=== PATIENT | male | born 1965 | race Caucasian/White ===

== ENCOUNTER → 2016-10-10 | Outpatient (CLI) | payer BC ==
--- NOTE | 2016-10-10 15:32 | REP ---
LEFT KNEE, FIVE VIEWS: HISTORY: Pain. There is no acute fracture or dislocation. The joint spaces are normal in appearance. IMPRESSION: There is no acute fracture or dislocation. Signed by Hermilo Rubi MD 10/10/2016 03:38 P
== END ==
LOC: M SMT 14:41
PROVIDERS: ATTEND Physician Assistant
DX: M25.562 Pain in left knee (principal)

== ENCOUNTER → 2016-11-28 | Outpatient (CLI) | payer BC ==
[~2016-11-28] VITALS: Ht 175.3 cm; Wt 125.2 kg
[~2016-11-28] MED LIST: BP pill PO; IBUP200C PO; LIDOCAINE 2% INJ 100 MG/5 ML SDV (FOR ANES.) As Ordered ONE; NS 1,000 ML IV SCH; PROPOFOL 200 MG/20 ML VIAL As Ordered ONE; [UNRECOGNIZED DRUG - REMARK] PO
--- NOTE | 2016-11-28 09:56 | ROOR ---
Patient Name: Aubrey Yen Procedure Date: 11/28/2016 9:36 AM Date of : 1965 Age: 51 Room: [facility] Gender: Male Note Status: Finalized Procedure: Colonoscopy Indications: Screening for colorectal malignant neoplasm Providers: Morgan Baldwin Jr, MD Referring MD: BRANDYN RANKIN [facility] [place] Requesting Provider: Medicines: Propofol per Anesthesia Complications: No immediate complications. Procedure: Pre-Anesthesia Assessment: - Prior to the procedure, a History and Physical was performed, and patient medications and allergies were reviewed. The patient is competent. The risks and benefits of the procedure and the sedation options and risks were discussed with the patient. All questions were answered and informed consent was obtained. Patient identification and proposed procedure were verified by the physician and the nurse in the pre-procedure area and in the procedure room. Mental Status Examination: alert and oriented. Airway Examination: normal oropharyngeal airway and neck mobility. Respiratory Examination: clear to auscultation. CV Examination: normal. ASA Grade Assessment: II - A patient with mild systemic disease. After reviewing the risks and benefits, the patient was deemed in satisfactory condition to undergo the procedure. The anesthesia plan was to use moderate sedation / analgesia (conscious sedation). Immediately prior to administration of medications, the patient was re-assessed for adequacy to receive sedatives. The heart rate, respiratory rate, oxygen saturations, blood pressure, adequacy of pulmonary ventilation, and response to care were monitored throughout the procedure. The physical status of the patient was re-assessed after the procedure. The Colonoscope was introduced through the anus and advanced to the cecum, identified by appendiceal orifice and ileocecal valve. The colonoscopy was performed without difficulty. The patient tolerated the procedure well. The quality of the bowel preparation was adequate and good. Findings: The perianal and digital rectal examinations were normal. Pertinent negatives include normal sphincter tone, no palpable rectal lesions and no anal lesion or abnormality was detected. The rectum, recto-sigmoid colon, descending colon, transverse colon, ascending colon, cecum, appendiceal orifice and ileocecal valve appeared normal. Multiple small-mouthed diverticula were found in the sigmoid colon. Impression: - The rectum, recto-sigmoid colon, descending colon, transverse colon, ascending colon, cecum, appendiceal orifice and ileocecal valve are normal. - Diverticulosis in the sigmoid colon. - No specimens collected. Recommendation: - Discharge patient to home (ambulatory). - Repeat colonoscopy in 10 years for screening purposes. Morgan Baldwin MD Morgan Baldwin Jr, MD 11/28/2016 9:55:54 AM This report has been signed electronically. Number of Addenda: 0 Note Initiated On: 11/28/2016 9:36 AM Estimated Blood Loss: Estimated blood loss: none.
[2016-11-28 10:10] VITALS: BP 134/84
== END | disposition home or self-care (01) ==
LOC: M OPP 08:49
PROVIDERS: ATTEND Surgery
DX: Z12.11 Encounter for screening for malignant neoplasm of colon (principal); K57.30 Diverticulosis of large intestine without perforation or abscess without bleeding; I10 Essential (primary) hypertension; R06.02 Shortness of breath; R06.83 Snoring; E66.9 Obesity, unspecified; Z88.8 Allergy status to other drugs, medicaments and biological substances; Z79.899 Other long term (current) drug therapy; Z87.891 Personal history of nicotine dependence
CPT/HCPCS: 99156; G0121

== ENCOUNTER 2017-01-28 15:46 | Outpatient (CLI) | payer BC ==
[~2017-01-28] VITALS: Ht 177.8 cm; Wt 125.0 kg
[~2017-01-28 15:46] MED LIST changes: -AMLO5TAB2 PO; -CELE1CAP9 PO; +IBUP200C PO; -IBUP200C10 PO
[2017-01-28 16:15] VITALS: BP 158/92
[2017-01-28] MEDS ORDERED: methylPREDNISolone 1,000 MG, VIAL MATE ADAPTER 1 EACH in D5W 250 ML IV ONE (16:15)
[2017-01-28 18:08] VITALS: BP 149/74
[2017-01-28] MEDS ORDERED: AMLO5TAB2 PO (18:08)
== END 2017-01-28 18:06 | disposition home or self-care (01) ==
LOC: M OPCLI4PV 15:46 → M MSPAV 15:52 → M OPCLI4PV 18:06
PROVIDERS: ATTEND Psychiatry & Neurology Neurology
DX: G35 Multiple sclerosis (principal); Z88.8 Allergy status to other drugs, medicaments and biological substances; Z79.899 Other long term (current) drug therapy
CPT/HCPCS: 96365; J2930

== ENCOUNTER → 2017-01-28 | Outpatient (REF) | payer BC ==
[~2017-01-28] MED LIST changes: +AMLO5TAB2 PO; +CELE1CAP9 PO; -IBUP200C PO; +IBUP200C10 PO; -LIDOCAINE 2% INJ 100 MG/5 ML SDV (FOR ANES.) As Ordered ONE; -NS 1,000 ML IV SCH; -PROPOFOL 200 MG/20 ML VIAL As Ordered ONE
[2017-01-28 20:25] LABS: FREE T4 1.07 NG/DL (0.76-1.46)
[2017-01-29 11:19] LABS: VITAMIN B12 LEVEL 486 PG/ML
[2017-02-04 14:11] LABS: Lyme Disease IgG/IgM Antibodie <0.91 ISR (0.00-0.90); Lyme Disease IgM Ab Quantitati <0.80 index (0.00-0.79); SJOGREN'S ANTI SS-A <0.2 AI (0.0-0.9); SJOGREN'S ANTI SS-B <0.2 AI (0.0-0.9)
== END ==
LOC: M LABNEURO 17:37
PROVIDERS: ATTEND Psychiatry & Neurology Neurology
DX: E07.9 Disorder of thyroid, unspecified (principal); R20.0 Anesthesia of skin; G37.9 Demyelinating disease of central nervous system, unspecified

== ENCOUNTER 2017-01-29 14:08 | Outpatient (CLI) | payer BC ==
[~2017-01-29] VITALS: Ht 177.8 cm; Wt 125.5 kg
[~2017-01-29 14:08] MED LIST changes: +AMLO5TAB2 PO; -IBUP200C PO; +IBUP200C10 PO
[2017-01-29] MEDS ORDERED: methylPREDNISolone 1,000 MG, VIAL MATE ADAPTER 1 EACH in D5W 250 ML IV ONE (15:00)
[2017-01-29 15:44] VITALS: BP 168/81
== END 2017-01-29 17:15 | disposition home or self-care (01) ==
LOC: M OPCLI4PV 14:08 → M MSPAV 14:10 → M OPCLI4PV 17:15
PROVIDERS: ATTEND Psychiatry & Neurology Neurology
DX: G35 Multiple sclerosis (principal); Z79.899 Other long term (current) drug therapy; Z88.8 Allergy status to other drugs, medicaments and biological substances
CPT/HCPCS: 96374; J2930

== ENCOUNTER 2017-01-30 14:08 | Outpatient (CLI) | payer BC ==
[~2017-01-30] VITALS: Ht 177.8 cm; Wt 129.6 kg
[2017-01-30 14:49] VITALS: BP 132/82
[2017-01-30] MEDS ORDERED: methylPREDNISolone 1,000 MG, VIAL MATE ADAPTER 1 EACH in D5W 250 ML IV ONE (15:00)
== END 2017-01-30 16:16 | disposition home or self-care (01) ==
LOC: M MSPAV 14:08 → M OPCLI4PV 14:08
PROVIDERS: ATTEND Psychiatry & Neurology Neurology
DX: G35 Multiple sclerosis (principal); Z79.899 Other long term (current) drug therapy; Z88.8 Allergy status to other drugs, medicaments and biological substances
CPT/HCPCS: 96374; J2930

== ENCOUNTER 2017-01-31 14:16 | Outpatient (CLI) | payer BC ==
[~2017-01-31] VITALS: Ht 177.8 cm; Wt 125.0 kg
[2017-01-31 14:30] VITALS: BP 142/92
[2017-01-31] MEDS ORDERED: methylPREDNISolone 1,000 MG, VIAL MATE ADAPTER 1 EACH in D5W 250 ML IV ONE (14:30)
[2017-01-31 16:00] VITALS: BP 132/92
[2017-02-01] MEDS ORDERED: CELE1CAP9 PO (14:33)
== END 2017-01-31 16:10 | disposition home or self-care (01) ==
LOC: M OPCLI4PV 14:16 → M MSPAV 14:17 → M OPCLI4PV 16:10
PROVIDERS: ATTEND Psychiatry & Neurology Neurology
DX: G35 Multiple sclerosis (principal); Z79.899 Other long term (current) drug therapy; Z88.8 Allergy status to other drugs, medicaments and biological substances
CPT/HCPCS: 96374; J2930

== ENCOUNTER 2017-02-01 14:17 | Outpatient (CLI) | payer BC ==
[~2017-02-01] VITALS: Ht 177.8 cm; Wt 125.0 kg
[2017-02-01 14:30] VITALS: BP 138/77
[2017-02-01] MEDS ORDERED: CELE1CAP9 PO (14:33)
[2017-02-01] MEDS ORDERED: methylPREDNISolone 1,000 MG, VIAL MATE ADAPTER 1 EACH in D5W 250 ML IV ONE (15:00)
== END 2017-02-01 16:25 | disposition home or self-care (01) ==
LOC: M OPCLIPED 14:17 → M PED 14:19 → M OPCLIPED 16:25
PROVIDERS: ATTEND Psychiatry & Neurology Neurology
DX: G35 Multiple sclerosis (principal); Z79.899 Other long term (current) drug therapy; Z88.8 Allergy status to other drugs, medicaments and biological substances
CPT/HCPCS: 96365; J2930

== ENCOUNTER → 2017-09-02 | Outpatient (REF) | payer BC ==
[2017-09-02 14:20] LABS: TOTAL 25(OH) VITAMIN D 12.3 NG/ML (30.0-100.0)
== END ==
LOC: M LABNEURO 13:12
DX: E55.9 Vitamin D deficiency, unspecified (principal)
CPT/HCPCS: 82306

== ENCOUNTER → 2017-09-15 | Outpatient (REF) | payer BC ==
[2017-09-15 15:33] LABS: ALBUMIN 4.2 GM/DL (3.2-5.2); ALBUMIN/GLOBULIN RATIO 1.45 (1.00-1.93); ALKALINE PHOSPHATASE 93 U/L (45-117); ALT/SGPT 59 U/L (12-78); ANION GAP 10 MEQ/L (8-16); AST/SGOT 34 U/L (7-37); BILIRUBIN,TOTAL 0.5 MG/DL (0.2-1.0); BLOOD UREA NITROGEN 17 MG/DL (7-18); CALCIUM LEVEL 9.3 MG/DL (8.5-10.1); CARBON DIOXIDE LEVEL 24 MEQ/L (21-32); CHLORIDE LEVEL 108 MEQ/L (98-107); CHOLESTEROL LEVEL 230 MG/DL (<200); CREATININE FOR GFR 1.07 MG/DL (0.70-1.30); GLOMERULAR FILTRATION RATE > 60.0 (>56); GLUCOSE, FASTING 90 MG/DL (70-100); HDL CHOLESTEROL 50 MG/DL (>40); LDL CHOLESTEROL 145.4 MG/DL (<100); NON-HDL-C 180 MG/DL; POTASSIUM SERUM 4.3 MEQ/L (3.5-5.1); PSA SCREENING 0.48 NG/ML (< 4.0); SODIUM LEVEL 142 MEQ/L (136-145); TOTAL PROTEIN 7.1 GM/DL (6.4-8.2); TRIGLYCERIDES LEVEL 173 MG/DL (<150)
== END ==
LOC: M LABNEURO 13:30
DX: Z13.220 Encounter for screening for lipoid disorders (principal); Z12.5 Encounter for screening for malignant neoplasm of prostate; I10 Essential (primary) hypertension; Z13.29 Encounter for screening for other suspected endocrine disorder
CPT/HCPCS: 84443

== ENCOUNTER 2017-11-26 06:58 | Outpatient (CLI) | payer BC ==
[2017-11-26] MEDS: methylPREDNISolone INJ 125 MG/2 ML VIAL (J2930) IV (07:33)
[2017-11-26] MEDS: diphenhydrAMINE 25 MG CAP PO (07:34)
[2017-11-26] MEDS: ACETAMINOPHEN TAB 650MG DOSE (2X325MG) PO (07:34)
[2017-11-26] MEDS: OCRELIZUMAB 600 MG in NS 500 ML IV (07:44)
== END 2017-11-26 11:45 | disposition home or self-care (01) ==
LOC: M INFU 06:58
DX: G35 Multiple sclerosis (principal); I10 Essential (primary) hypertension; Z79.899 Other long term (current) drug therapy
CPT/HCPCS: J2930

== ENCOUNTER → 2017-12-02 | Outpatient (REF) | payer BC ==
[2017-12-02 11:19] LABS: BASO # 0.1 10^3/uL (0.0-0.2); EOS # 0.1 10^3/uL (0.0-0.50); EOS % 1.6 % (0.0-3.0); HEMATOCRIT 46.7 % (42.0-52.0); HEMOGLOBIN 15.9 g/dl (13.5-17.5); IMMATURE GRANULOCYTE % 0.9 % (0-3.0); LYMPH # 1.4 10^3/uL (1.5-4.5); LYMPH % 18.8 % (24.0-44.0); MEAN CORPUSCULAR HEMOGLOBIN 31.1 pg (27.0-33.0); MEAN CORPUSCULAR VOLUME 91.4 fl (80.0-96.0); MONO % 13.2 % (0.0-5.0); NEUTROPHILS % 64.5 % (36.0-66.0); PLATELET COUNT, AUTOMATED 248 10^3/uL (150-450); RED BLOOD COUNT 5.11 10^6/uL (4.30-6.10); WHITE BLOOD COUNT 7.7 10^3/uL (4.0-10.0)
[2017-12-02 11:22] LABS: ALBUMIN 4.1 GM/DL (3.2-5.2); ALBUMIN/GLOBULIN RATIO 1.41 (1.00-1.93); ALKALINE PHOSPHATASE 93 U/L (45-117); ALT/SGPT 56 U/L (12-78); ANION GAP 7 MEQ/L (8-16); AST/SGOT 31 U/L (7-37); BILIRUBIN,TOTAL 0.7 MG/DL (0.2-1.0); BLOOD UREA NITROGEN 16 MG/DL (7-18); CALCIUM LEVEL 9.2 MG/DL (8.5-10.1); CARBON DIOXIDE LEVEL 25 MEQ/L (21-32); CHLORIDE LEVEL 110 MEQ/L (98-107); CREATININE FOR GFR 1.11 MG/DL (0.70-1.30); GLOMERULAR FILTRATION RATE > 60.0 (>56); GLUCOSE, FASTING 99 MG/DL (70-100); POTASSIUM SERUM 4.1 MEQ/L (3.5-5.1); SODIUM LEVEL 142 MEQ/L (136-145)
[2017-12-02 11:29] LABS: TOTAL 25(OH) VITAMIN D 60.3 NG/ML (30.0-100.0)
== END ==
LOC: M LABNEURO 08:15
DX: E55.9 Vitamin D deficiency, unspecified (principal)
CPT/HCPCS: 80053

== ENCOUNTER 2018-05-27 06:53 | Outpatient (CLI) | payer BC ==
[2018-05-27] MEDS: diphenhydrAMINE 25 MG CAP PO (07:36)
[2018-05-27] MEDS: methylPREDNISolone INJ 125 MG/2 ML VIAL (J2930) IV (07:36)
[2018-05-27] MEDS: ACETAMINOPHEN TAB 650MG DOSE (2X325MG) PO (07:36)
[2018-05-27] MEDS: OCRELIZUMAB 600 MG in NS 500 ML IV (08:24)
[2018-05-27] MEDS: 0.22 MICRON FILTER (METHACHOLINE/OCREVUS) XX (08:25)
== END 2018-05-27 12:40 | disposition home or self-care (01) ==
LOC: M INFU 06:53
DX: G35 Multiple sclerosis (principal); Z79.899 Other long term (current) drug therapy; Z88.8 Allergy status to other drugs, medicaments and biological substances
CPT/HCPCS: J2930

== ENCOUNTER 2018-11-18 07:32 | Outpatient (CLI) | payer BC ==
[~2018-11-18] VITALS: Ht 172.7 cm; Wt 125.0 kg
[2018-11-18] VITALS (7 sets, daily range): BP systolic 127–150; BP diastolic 76–84
[~2018-11-18 07:32] MED LIST changes: -AMLO5TAB2 PO; +AMLO5TAB6 PO; +CELE1CAP9 PO; -IBUP200C10 PO; +IBUP200C25 PO
[2018-11-18] MEDS ORDERED: diphenhydrAMINE 25 MG CAP PO ONE (07:45)
[2018-11-18] MEDS ORDERED: 0.22 MICRON FILTER (METHACHOLINE/OCREVUS) XX ONE (07:45)
[2018-11-18] MEDS ORDERED: ACETAMINOPHEN TAB 650MG DOSE (2X325MG) PO ONE (07:45)
[2018-11-18] MEDS ORDERED: OCRELIZUMAB 600 MG in NS 500 ML IV ONE (07:45)
[2018-11-18] MEDS ORDERED: methylPREDNISolone INJ 125 MG/2 ML VIAL (J2930) IV ONE (07:45)
== END 2018-11-18 12:25 | disposition home or self-care (01) ==
LOC: M INFU 07:32
PROVIDERS: ATTEND Psychiatry & Neurology Neurology
DX: G35 Multiple sclerosis (principal)
CPT/HCPCS: 96375; 96413; 96415; J2350; J2930

== ENCOUNTER → 2019-01-28 | Outpatient (REF) | payer BC ==
[2019-01-28 17:27] LABS: BASO # 0.1 10^3/uL (0.0-0.2); BASO % 0.8 % (0.0-1.0); EOS # 0.2 10^3/uL (0.0-0.50); EOS % 1.9 % (0.0-3.0); HEMATOCRIT 44.4 % (42.0-52.0); HEMOGLOBIN 15.1 g/dl (13.5-17.5); LYMPH # 1.5 10^3/uL (1.5-4.5); LYMPH % 19.3 % (24.0-44.0); MEAN CORPUSCULAR HEMOGLOBIN 32.1 pg (27.0-33.0); MEAN CORPUSCULAR VOLUME 94.3 fl (80.0-96.0); MONO # 1.1 10^3/uL (0.0-0.8); MONO % 13.8 % (0.0-5.0); NEUTROPHILS % 63.9 % (36.0-66.0); PLATELET COUNT, AUTOMATED 244 10^3/uL (150-450); RED BLOOD COUNT 4.71 10^6/uL (4.30-6.10); WHITE BLOOD COUNT 7.8 10^3/uL (4.0-10.0)
[2019-01-28 17:50] LABS: ALBUMIN 3.8 GM/DL (3.2-5.2); ALT/SGPT 46 U/L (12-78); BILIRUBIN,TOTAL 0.3 MG/DL (0.2-1.0); BLOOD UREA NITROGEN 20 MG/DL (7-18); CALCIUM LEVEL 8.6 MG/DL (8.5-10.1); CARBON DIOXIDE LEVEL 26 MEQ/L (21-32); CHLORIDE LEVEL 112 MEQ/L (98-107); CREATININE FOR GFR 1.03 MG/DL (0.70-1.30); GLOMERULAR FILTRATION RATE > 60.0 (>56); GLUCOSE, FASTING 81 MG/DL (70-100); POTASSIUM SERUM 3.8 MEQ/L (3.5-5.1); SODIUM LEVEL 145 MEQ/L (136-145); TOTAL PROTEIN 6.6 GM/DL (6.4-8.2)
[2019-01-28 17:58] LABS: TOTAL 25(OH) VITAMIN D 51.6 NG/ML (30.0-100.0)
== END ==
LOC: M LABDRAW1 16:56
PROVIDERS: ATTEND Psychiatry & Neurology Neurology
DX: G35 Multiple sclerosis (principal); E55.9 Vitamin D deficiency, unspecified

== ENCOUNTER 2019-05-17 08:45 | Outpatient (CLI) | payer BC ==
[~2019-05-17] VITALS: Ht 177.8 cm; Wt 118.2 kg
[2019-05-17 08:55] VITALS: BP 150/83
[2019-05-17] MEDS ORDERED: OCRELIZUMAB 600 MG in NS 500 ML IV ONE (09:00)
[2019-05-17] MEDS ORDERED: 0.22 MICRON FILTER (METHACHOLINE/OCREVUS) XX ONE (09:00)
[2019-05-17] MEDS ORDERED: methylPREDNISolone INJ 125 MG/2 ML VIAL (J2930) IV ONE (09:00)
[2019-05-17] MEDS ORDERED: diphenhydrAMINE 25 MG CAP PO ONE (09:00)
[2019-05-17] MEDS ORDERED: ACETAMINOPHEN TAB 650MG DOSE (2X325MG) PO ONE (09:00)
[2019-05-17] MEDS ORDERED: OCRE300I IV (09:27)
[2019-05-17] MEDS ORDERED: CHOL100029 PO (09:29)
[2019-05-17 10:00] VITALS: BP 134/86
[2019-05-17 10:25] VITALS: BP 129/85
[2019-05-17 10:58] VITALS: BP 128/80
[2019-05-17 13:30] VITALS: BP 140/82
== END 2019-05-17 13:30 | disposition home or self-care (01) ==
LOC: M INFU 08:45
PROVIDERS: ATTEND Psychiatry & Neurology Neurology
DX: G35 Multiple sclerosis (principal); Z88.8 Allergy status to other drugs, medicaments and biological substances
CPT/HCPCS: 96375; 96413; 96415; J2350; J2930

== ENCOUNTER 2019-11-15 08:46 | Outpatient (CLI) | payer BC ==
[~2019-11-15] VITALS: Ht 177.8 cm; Wt 118.0 kg
[~2019-11-15 08:46] MED LIST changes: +CHOL100029 PO; +OCRE300I IV
[2019-11-15 08:50] VITALS: BP 166/92
[2019-11-15] MEDS ORDERED: diphenhydrAMINE 25MG CAP PO ONE (09:15)
[2019-11-15] MEDS ORDERED: ACETAMINOPHEN TAB 650MG DOSE (2X325MG) PO ONE (09:15)
[2019-11-15] MEDS ORDERED: methylPREDNISolone INJ 125 MG/2 ML VIAL (J2930) IV ONE (09:15)
[2019-11-15] MEDS ORDERED: OCRELIZUMAB 300 MG in NS 250 ML IV ONE (09:30)
[2019-11-15 10:00] VITALS: BP 144/84
[2019-11-15 10:30] VITALS: BP 142/82
[2019-11-15 11:00] VITALS: BP 149/80
[2019-11-15 12:00] VITALS: BP 145/81
[2019-11-15 12:45] VITALS: BP 146/84
== END 2019-11-15 12:45 | disposition home or self-care (01) ==
LOC: M INFU 08:46
PROVIDERS: ATTEND Psychiatry & Neurology Neurology
DX: G35 Multiple sclerosis (principal); Z88.8 Allergy status to other drugs, medicaments and biological substances
CPT/HCPCS: 96365; 96366; 96375; J2350; J2930

== ENCOUNTER 2020-05-15 08:37 | Outpatient (CLI) | payer BC ==
[~2020-05-15] VITALS: Ht 177.8 cm; Wt 120.0 kg
[~2020-05-15 08:37] MED LIST changes: +AMLO1TAB24 PO; -AMLO5TAB6 PO
[2020-05-15 08:50] VITALS: BP 166/93
[2020-05-15] MEDS: diphenhydrAMINE 25MG CAP PO ONE (09:13)
[2020-05-15] MEDS: methylPREDNISolone 125MG 2ML VIAL IV ONE (09:13)
[2020-05-15] MEDS: ACETAMINOPHEN TAB 650MG DOSE (2X325MG) PO ONE (09:13)
[2020-05-15] MEDS: OCRELIZUMAB 600 MG in NS 500 ML IV ONE (09:16)
[2020-05-15 10:00] VITALS: BP 145/88
[2020-05-15 10:30] VITALS: BP 140/82
[2020-05-15] MEDS ORDERED: 0.22 MICRON FILTER (METHACHOLINE/OCREVUS) XX ONE (10:45)
[2020-05-15 11:00] VITALS: BP 163/87
[2020-05-15 12:00] VITALS: BP 159/88
[2020-05-15 13:30] VITALS: BP 142/87
== END 2020-05-15 13:45 | disposition home or self-care (01) ==
LOC: M INFU 08:37
PROVIDERS: ATTEND Psychiatry & Neurology Neurology
DX: G35 Multiple sclerosis (principal)
CPT/HCPCS: 96375; 96413; 96415; J2350; J2930

== ENCOUNTER 2020-11-13 08:28 | Outpatient (CLI) | payer BC ==
[~2020-11-13] VITALS: Ht 177.8 cm; Wt 120.0 kg
[2020-11-13 08:30] VITALS: BP 171/81
[2020-11-13] MEDS ORDERED: OCRELIZUMAB 600 MG in NS 500 ML IV ONE (09:00)
[2020-11-13] MEDS ORDERED: methylPREDNISolone 125MG 2ML VIAL IV ONE (09:00)
[2020-11-13] MEDS ORDERED: ACETAMINOPHEN TAB 650MG DOSE (2X325MG) PO ONE (09:00)
[2020-11-13] MEDS ORDERED: diphenhydrAMINE 25MG CAP PO ONE (09:00)
[2020-11-13 09:54] VITALS: BP 135/76
[2020-11-13 10:30] VITALS: BP 142/79
[2020-11-13 11:30] VITALS: BP 143/79
[2020-11-13 12:30] VITALS: BP 138/76
[2020-11-13 13:30] VITALS: BP 148/78
== END 2020-11-13 13:30 | disposition home or self-care (01) ==
LOC: M INFU 08:28
PROVIDERS: ATTEND Psychiatry & Neurology Neurology
DX: G35 Multiple sclerosis (principal); Z88.8 Allergy status to other drugs, medicaments and biological substances
CPT/HCPCS: 96365; 96366; 96375; J2350; J2930

== ENCOUNTER 2021-05-14 08:56 | Outpatient (CLI) | payer BC ==
[2021-05-14] VITALS (7 sets, daily range): BP systolic 137–160; BP diastolic 62–90
[~2021-05-14] VITALS: Ht 172.7 cm; Wt 120.0 kg
[2021-05-14] MEDS ORDERED: ACETAMINOPHEN TAB 650MG DOSE (2X325MG) PO ONE (09:00)
[2021-05-14] MEDS ORDERED: methylPREDNISolone 125MG 2ML VIAL IV ONE (09:00)
[2021-05-14] MEDS ORDERED: OCRELIZUMAB 600 MG in NS 500 ML IV ONE (09:00)
[2021-05-14] MEDS ORDERED: diphenhydrAMINE 25MG CAP PO ONE (09:00)
[2021-05-14] MEDS ORDERED: ACET650T61 PO (10:32)
== END 2021-05-14 14:10 | disposition home or self-care (01) ==
LOC: M INFU 08:56
PROVIDERS: ATTEND Psychiatry & Neurology Neurology
DX: G35 Multiple sclerosis (principal); Z88.8 Allergy status to other drugs, medicaments and biological substances
CPT/HCPCS: 96365; 96366; 96375; J2350; J2930

== ENCOUNTER → 2021-07-09 | Outpatient (CLI) | payer BC ==
[~2021-07-09] MED LIST changes: +ACET650T61 PO
[2021-07-09 17:52] LABS: BASO # 0.1 10^3/uL (0.0-0.2); BASO % 0.8 % (0.0-1.0); EOS # 0.2 10^3/uL (0.0-0.5); EOS % 2.2 % (0.0-3.0); HEMATOCRIT 46.6 % (42.0-52.0); HEMOGLOBIN 15.5 g/dl (13.5-17.5); LYMPH # 2.2 10^3/uL (1.5-5.0); LYMPH % 24.6 % (24.0-44.0); MEAN CORPUSCULAR HGB CONC 33.3 g/dl (32.0-36.5); MEAN CORPUSCULAR VOLUME 96.1 fl (80.0-96.0); MONO # 1.5 10^3/uL (0.0-0.8); MONO % 17.3 % (2.0-8.0); NEUTROPHILS # 4.8 10^3/uL (1.5-8.5); NEUTROPHILS % 54.4 % (36.0-66.0); PLATELET COUNT, AUTOMATED 305 10^3/uL (150-450); RED BLOOD COUNT 4.85 10^6/uL (4.30-6.10); WHITE BLOOD COUNT 8.8 10^3/uL (4.0-10.0)
[2021-07-09 18:17] LABS: ALT/SGPT 61 U/L (12-78); BILIRUBIN,TOTAL 0.4 MG/DL (0.2-1.0); BLOOD UREA NITROGEN 18 MG/DL (7-18); CALCIUM LEVEL 9.5 MG/DL (8.5-10.1); CARBON DIOXIDE LEVEL 29 MEQ/L (21-32); CHLORIDE LEVEL 108 MEQ/L (98-107); CREATININE FOR GFR 1.05 MG/DL (0.70-1.30); GLOMERULAR FILTRATION RATE > 60.0 (>56); GLUCOSE, FASTING 76 MG/DL (70-100); POTASSIUM SERUM 4.2 MEQ/L (3.5-5.1); SODIUM LEVEL 144 MEQ/L (136-145); TOTAL PROTEIN 7.1 GM/DL (6.4-8.2)
== END ==
LOC: M PLALAB 15:33
PROVIDERS: ATTEND Psychiatry & Neurology Neurology
DX: G35 Multiple sclerosis (principal); E55.9 Vitamin D deficiency, unspecified

== ENCOUNTER 2021-11-16 10:17 | Outpatient (CLI) | payer BC ==
[~2021-11-16] VITALS: Ht 177.8 cm; Wt 122.7 kg
[2021-11-16 10:20] VITALS: BP 138/81
[2021-11-16] MEDS ORDERED: methylPREDNISolone 125MG 2ML VIAL IV ONE (10:30)
[2021-11-16] MEDS ORDERED: diphenhydrAMINE 25MG CAP PO ONE (10:30)
[2021-11-16] MEDS ORDERED: ACETAMINOPHEN TAB 650MG DOSE (2X325MG) PO ONE (10:30)
[2021-11-16] MEDS ORDERED: OCRELIZUMAB 600 MG in NS 500 ML IV ONE (10:30)
[2021-11-16 12:30] VITALS: BP 157/82
[2021-11-16 13:00] VITALS: BP 161/84
[2021-11-16 13:58] VITALS: BP 163/84
[2021-11-16 15:55] VITALS: BP 169/94
== END 2021-11-16 15:50 | disposition home or self-care (01) ==
LOC: M INFU 10:17
PROVIDERS: ATTEND Psychiatry & Neurology Neurology
DX: G35 Multiple sclerosis (principal); Z88.8 Allergy status to other drugs, medicaments and biological substances
CPT/HCPCS: 96365; 96366; 96375; J2350; J2930

== ENCOUNTER 2022-05-17 06:46 | Outpatient (CLI) | payer BC ==
[~2022-05-17] VITALS: Ht 177.8 cm; Wt 118.0 kg
[2022-05-17 07:00] VITALS: BP 177/89
[2022-05-17] MEDS ORDERED: ACETAMINOPHEN TAB 650MG DOSE (2X325MG) PO ONE (07:00)
[2022-05-17] MEDS ORDERED: methylPREDNISolone 125MG 2ML VIAL IV ONE (07:00)
[2022-05-17] MEDS ORDERED: diphenhydrAMINE 25MG CAP PO ONE (07:00)
[2022-05-17] MEDS ORDERED: OCRELIZUMAB 600 MG in NS 500 ML IV ONE (07:00)
[2022-05-17 08:15] VITALS: BP 137/85
[2022-05-17 08:45] VITALS: BP 140/84
[2022-05-17 09:15] VITALS: BP 150/83
[2022-05-17 11:45] VITALS: BP 143/73
== END 2022-05-17 11:45 | disposition home or self-care (01) ==
LOC: M INFU 06:46
PROVIDERS: ATTEND Psychiatry & Neurology Neurology
DX: G35 Multiple sclerosis (principal); Z88.8 Allergy status to other drugs, medicaments and biological substances
CPT/HCPCS: 96365; 96366; 96367; J2350; J2930

== ENCOUNTER 2022-11-15 06:35 | Outpatient (CLI) | payer BC ==
[2022-11-15 07:00] VITALS: BP 137/88
[2022-11-15] MEDS ORDERED: OCRELIZUMAB 600 MG in NS 500 ML IV ONE (07:00)
[2022-11-15] MEDS ORDERED: methylPREDNISolone 125MG 2ML VIAL IV ONE (07:00)
[2022-11-15] MEDS ORDERED: ACETAMINOPHEN TAB 650MG DOSE (2X325MG) PO ONE (07:00)
[2022-11-15] MEDS ORDERED: diphenhydrAMINE 25MG CAP PO ONE (07:00)
[2022-11-15 11:37] VITALS: BP 180/105
== END 2022-11-15 11:40 ==
LOC: M INFU 06:35
PROVIDERS: ATTEND Psychiatry & Neurology Neurology
DX: G35 Multiple sclerosis (principal); Z88.8 Allergy status to other drugs, medicaments and biological substances
CPT/HCPCS: 96365; 96366; J2350; J2930

== ENCOUNTER 2023-11-27 07:14 | Outpatient (CLI) | payer BC ==
[2023-11-27] VITALS (7 sets, daily range): BP systolic 168–190; BP diastolic 83–96; O2SAT 93–96
[~2023-11-27] VITALS: Ht 177.8 cm; Wt 128.0 kg
[~2023-11-27 07:14] MED LIST changes: +CELE0.09 PO; -CELE1CAP9 PO
[2023-11-27] MEDS: ACETAMINOPHEN TAB 650MG DOSE (2X325MG) PO ONE (07:28)
[2023-11-27] MEDS: diphenhydrAMINE 25MG CAP PO ONE (07:28)
[2023-11-27] MEDS: methylPREDNISolone 125MG 2ML VIAL IV ONE (07:29)
[2023-11-27] MEDS: OCRELIZUMAB 600 MG in NS 500 ML IV ONE (08:02)
== END 2023-11-27 12:00 ==
LOC: M INFU 07:14
PROVIDERS: ATTEND Psychiatry & Neurology Neurology
DX: G35 Multiple sclerosis (principal); Z88.8 Allergy status to other drugs, medicaments and biological substances
CPT/HCPCS: 96365; 96366; J2919

== ENCOUNTER 2024-05-31 07:25 | Outpatient (CLI) | payer BC ==
[~2024-05-31] VITALS: Ht 177.8 cm; Wt 112.2 kg
[2024-05-31] VITALS (7 sets, daily range): BP systolic 132–139; BP diastolic 71–81; O2SAT 96–100
[2024-05-31] MEDS: ACETAMINOPHEN 325 MG TAB PO ONE (07:55)
[2024-05-31] MEDS: diphenhydrAMINE 25MG CAP PO ONE (07:55)
[2024-05-31] MEDS: methylPREDNISolone 125MG 2ML VIAL IV ONE (07:56)
[2024-05-31] MEDS: OCRELIZUMAB 600 MG in NS 500 ML IV ONE (08:35)
== END 2024-05-31 12:20 ==
LOC: M INFU 07:25
PROVIDERS: ATTEND Psychiatry & Neurology Neurology
DX: G35 Multiple sclerosis (principal); Z88.8 Allergy status to other drugs, medicaments and biological substances
CPT/HCPCS: 96365; 96366; 96367; J2350; J2919